=== PATIENT | male | born 1965 | race Caucasian/White ===

== ENCOUNTER 2016-09-29 15:21 | Emergency (ER) | payer SELFPAY ==
[2016-09-29 16:07] LABS: Basophils % (Auto) 0.3 % (0.0-1.8); Hematocrit 44.8 % (35.5-45.6); Hemoglobin 15.1 gm/dl (11.8-15.2); Mean Corpuscular HGB Conc 34 % (32-34); Mean Corpuscular Hemoglobin 30 pg (28-32); Mean Corpuscular Volume 89 fl (84-94); Platelet Count 255 K/mm3 (140-440); Red Blood Count 5.02 M/mm3 (3.65-5.03); Red Cell Distribution Width 15.3 % (13.2-15.2); White Blood Count 6.3 K/mm3 (4.5-11.0)
--- NOTE | 2016-09-29 16:45 | Emergency Department Report ---
ED Alcohol HPI - General Chief Complaint: Alcohol Stated Complaint: PAIN ALL OVER Time Seen by Provider: 09/29/16 16:22 Source: patient, EMS Mode of arrival: Stretcher Limitations: Other - History of Present Illness Initial Comments: 48-year-old male with history of alcohol abuse presenting today because of alcohol intoxication and diffuse body pain. Patient states that one of the last week when he has been drinking more heavily. He denies any fevers or chills at this time. Denies any recent trauma and denies any use of drugs or tobacco. Single the pain is worse in his knees bilaterally. - Related Data Previous Rx's Medication Instructions Recorded Last Taken Type Ibuprofen [Motrin] 600 mg PO Q8H PRN #14 tablet 09/30/16 Unknown Rx Allergies Allergy/AdvReac Type Severity Reaction Status Date / Time No Known Allergies Allergy Unverified 09/29/16 15:43 ED Review of Systems ROS: Stated complaint: PAIN ALL OVER Other details as noted in HPI Comment: All other systems reviewed and negative Constitutional: denies: chills, fever Respiratory: denies: cough Cardiovascular: denies: chest pain Gastrointestinal: denies: nausea, vomiting Genitourinary: denies: urgency, dysuria Skin: denies: rash Neurological: denies: headache Psychiatric: denies: anxiety ED Past Medical Hx - Past Medical History Previous Medical History?: No - Surgical History Past Surgical History?: No - Social History Smoking Status: Never Smoker Substance Use Type: Alcohol - Medications Home Medications: Home Medications Medication Instructions Recorded Confirmed Last Taken Type Ibuprofen [Motrin] 600 mg PO Q8H PRN #14 tablet 09/30/16 Unknown Rx ED Physical Exam - General Limitations: Other General appearance: alert, in no apparent distress - Head Head exam: Present: atraumatic - ENT ENT exam: Present: mucous membranes dry - Respiratory Respiratory exam: Present: normal lung sounds bilaterally. Absent: respiratory distress - Cardiovascular Cardiovascular Exam: Present: regular rate, normal rhythm - GI/Abdominal GI/Abdominal exam: Present: soft. Absent: distended, tenderness - Extremities Exam Extremities exam: Present: normal inspection, full ROM, other (both knees examined with no tenderness, warmth, swelling, erythema) - Neurological Exam Neurological exam: Present: alert, other (appears intoxicated) - Skin Skin exam: Present: intact ED Course Vital Signs 09/29/16 09/29/16 15:40 16:02 Temperature 97.6 F Pulse Rate 86 Respiratory 18 16 Rate Blood Pressure 146/84 O2 Sat by Pulse 100 Oximetry - Reevaluation(s) Reevaluation #1: 09/30/16 00:55 Patient observed by the nurse to ambulate without assistance in the emergency room. I explained to the patient the lab results showing hepatitis and that it was important for him to decrease the amount of alcoholic takes analysis is the likely cause. Patient appears &. He does not have any slurred speech and appears to be able to make decisions for himself at this point. He is stable for discharge. ED Medical Decision Making - Lab Data Result diagrams: 09/29/16 15:55 09/29/16 15:55 - Medical Decision Making IV, labs, EKG, IV fluids, analgesic Labs show a alcohol level of 0.38 as well as dehydration indicated by the high BUN/creatinine ratio EKG shows normal sinus rhythm at a rate of [address]-T changes. His AST and ALT levels are a little bit elevated however the rest of the liver enzymes are normal This is likely due to alcoholic hepatitis X-ray of the chest shows poor inspiratory effort, no significant acute pathology Critical care attestation.: If time is entered above; I have spent that time in minutes in the direct care of this critically ill patient, excluding procedure time. ED Disposition Clinical Impression: Alcoholic hepatitis Qualifiers: Ascites presence: without ascites Qualified Code(s): K70.10 - Alcoholic hepatitis without ascites Disposition: DISCHARGED TO HOME OR SELFCARE Is pt being admited?: No Does the pt Need Aspirin: No Condition: Stable Instructions: Alcohol Intoxication (ED) Additional Instructions: Please follow up with the primary care physician in the next 3-5 days. Return to the emergency room immediately if your symptoms worsen significantly or you develop any new symptoms. Your labs showed that your liver enzymes are elevated suggesting hepatitis likely due to your alcohol intoxication. Please make sure to discuss these results with your doctor. Prescriptions: Ibuprofen [Motrin] 600 mg PO Q8H PRN #14 tablet PRN Reason: Pain Referrals: PRIMARY CARE, [Primary Care Provider] - 3-5 Days [facility] [place] [Outside] - 3-5 Days [facility] [Outside] - 3-5 Days Time of Disposition: 00:59
[2016-09-29] MEDS ORDERED: MOTRIN PO ONE (16:46)
[2016-09-29] MEDS ORDERED: NACL 0.9% 1000 ML 1,000 ML IV ONE (16:47)
[2016-09-29 17:30] LABS: Alanine Aminotransferase 143 units/L (7-56); Albumin 4.2 g/dL (3.9-5); Albumin/Globulin Ratio 1.8 %; Alkaline Phosphatase 96 units/L (35-129); Anion Gap 22 mmol/L; Blood Urea Nitrogen 15 mg/dL (9-20); Calcium 8.7 mg/dL (8.4-10.2); Carbon Dioxide 26 mmol/L (22-30); Chloride 99.5 mmol/L (98-107); Glucose 97 mg/dL (75-100); Potassium 3.8 mmol/L (3.6-5.0); Sodium 144 mmol/L (137-145); Total Protein 6.5 g/dL (6.3-8.2)
[2016-09-29] MEDS ORDERED: D5/0.45NS 1,000 ML IV SCH (18:00)
[2016-09-29] MEDS ORDERED: VITAMIN B-1 100 MG, FOLVITE 1 MG, INFUVITE 10 ML in NACL 0.9% 1000 ML 1,000 ML IV ONE (18:00)
[2016-09-29 19:25] LABS: Urine Drugs of Abuse Note Disclamer
[2016-09-29 19:40] LABS: Bilirubin,Urine NEG (Negative); Blood,Urine NEG (Negative); Ketones,Urine TR mg/dL (Negative); Leukocyte Esterase,Urine NEG (Negative); Mucus,Urine 2+ /HPF; Nitrite,Urine NEG (Negative); Urobilinogen,Urine < 2.0 mg/dL (<2.0)
[2016-09-30 01:14] VITALS: BP 129/82
--- NOTE | 2016-09-30 10:15 | XRay Report ---
AP CHEST :09/29/16 16:40:00 CLINICAL: Cough. COMPARISON:None. FINDINGS: Normal heart and pulmonary vasculature. The lungs are clear. The bones and soft tissues are normal. IMPRESSION: Normal chest.
== END 2016-09-30 06:24 | disposition home or self-care (01) ==
LOC: ED 15:21
DX: K70.10 Alcoholic hepatitis without ascites (principal)
CPT/HCPCS: 36415; 71010; 80053; 80307; 81001; 85025; 93005; 93010; 96361; 96365; 96366; 99284; G0480; J3411; J7030; 80320